=== PATIENT | female | born 1950 | race Caucasian/White ===

== ENCOUNTER 2017-02-14 11:03 | Emergency (ER) | payer MEDICARE, MEDICAID ==
[~2017-02-14] VITALS: Wt 55.0 kg
[~2017-02-14 11:03] MED LIST: ALEN70TA30 PO; BENA20TA48 PO; CIPR500T4 PO; DICL100G37 TOP; LORA0.5T PO; NORT25CA PO; ONDA-43 PO; RANI150T5 PO; SUMA50TA3 PO; TRAM-40 PO; TRAZ150T65 PO
[2017-02-14] MEDS ORDERED: HYDROCODONE/APAP (5/325) TAB PO ONE (12:00)
--- NOTE | 2017-02-14 12:54 | RADRPT ---
PROCEDURE: Thoracic spine series CLINICAL INDICATION: Trauma TECHNIQUE: AP and lateral views of the thoracic spine were obtained COMPARISON: MR thoracic spine 04/05/2013 FINDINGS: The bones are diffusely demineralized consistent with osteoporosis. There is a moderate dextrorotos coliosis of the mid to lower thoracic and upper lumbar spine. There are multiple mild mid and lower thoracic vertebral body fractures that appear chronic . There is no definite acute fractures. The re is no retropulsion. It is difficult to optimally evaluate the posterior elements and there is no gross abnormality. There are no definite paraspinous masses. There is atherosclerotic vascular dis ease present. IMPRESSION: 1. Osteoporosis. 2. Multiple mid and lower thoracic vertebral compression fractures appear chronic. No definite acu te fractures or retropulsion. 3. 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 RPTAT:AAJJ Physician Shelby Date Time Electronically viewed and signed by Casandra Del Castillo Physician on 02/14/2017 12:54 BM/
--- NOTE | 2017-02-14 12:56 | RADRPT ---
PROCEDURE: Pelvis x-ray CLINICAL INDICATION: Trauma TECHNIQUE: Single AP view of the pelvis performed. COMPARISON: None FINDINGS: There is incomplete demonstration of fixation of the proximal left femur. There appears to be old s uperior and inferior pubic rami fractures. There are no acute fractures or dislocations. There is mild degenerate joint disease of both hips. There is vertebral plasties involving the lower lumbar spine. There is degenerative changes lower lumbar spine. The bones are osteoporotic without evidence of focal bony blastic or lytic lesions. IMPRESSION: 1. Old bilateral superior and inferior pubic rami fractures. 2. Fixation of the proximal left femur incompletely visualized. 3. No evidence of acute fractures or dislocation. 4. 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 5. Osteoporosis. RPTAT:AAJJ Physician Shelby Date Time Electronically viewed and signed by Casandra Del Castillo Physician on 02/14/2017 12:56 BM/
--- NOTE | 2017-02-14 12:57 | RADRPT ---
PROCEDURE: Right hip series CLINICAL INDICATION: Trauma TECHNIQUE: AP and frog lateral views of the right hip were performed. COMPARISON: None. FINDINGS: There is mild degenerate joint disease right hip. There is old superior and inferior right pubic ra mi fractures. No acute fractures or dislocations. The bones are osteoporotic. No focal bony blast ic or lytic lesions. The soft tissues are unremarkable. IMPRESSION: 1. Mild degenerate joint disease of the right hip without acute fracture or dislocation. 2. Old right superior and inferior pubic rami fractures. 3. Osteoporosis. RPTAT:AAJJ Physician Shelby Date Time Electronically viewed and signed by Casandra Del Castillo Physician on 02/14/2017 12:57 BM/
--- NOTE | 2017-02-14 14:43 | RADRPT ---
PROCEDURE: CT of the right hip CLINICAL INDICATION: Right hip pain, fall, concern for fracture TECHNIQUE: Axial images through the right hip without IV contrast. Coronal and sagittal reformat s. Images were interpreted at an independent PACS workstation. CTDI 4.25 mGy DLP 15 1.44 mGy-cm One or more of the following dose reduction techniques were used: Automated exposure control Adjustment of the mA and / or kV according to patient size Use of iterative reconstruction technique. COMPARISON: Radiographs of the right hip performed same day CT of the abdomen and pelvis dated Fe ruary 2015, FINDINGS: The bones are osteopenic. There is evidence of remote bilateral inferior and superior pubic ramus f ractures with callous formation and healing changes. There is also a cortical irregularity of the r ight iliac crest peripherally, not present in 2016, but more likely chronic than acute as there is n o adjacent soft tissue swelling. There are degenerative changes at the sacroiliac joints and pubic symphysis with chondrocalcinosis a t the pubic symphysis. There is a chronic compression fracture of the L5 vertebral body with some a ssociated vertebral body cement. Some of the cement extends into the neural foramen at L5-S1 on the left. There are vascular calcifications. There is stool throughout the colon. There is a 4x 3 cm left ad nexal cyst. The bladder is distended. There is no lymphadenopathy. IMPRESSION: 1. Chronic bilateral inferior and superior pubic rami fractures. Cortical irregularity of the calli phery of the right iliac wing also appears more likely chronic than acute, though was not present bruary 2015. If clinically warranted MRI may provide additional detail. 2. Chronic compression fracture of L5 with associated vertebral body cement as above. 3. Incompletely assessed 4 x 3 cm left adnexal cyst. Recommend correlation with pelvic ultrasound. RPTAT: UU .Shayan Duran MD, Date Time Electronically viewed and signed by .Shayan Duran MD, on 02/14/2017 14:42 .K/
[2017-02-14] MEDS ORDERED: HYDR-906 PO (15:17)
[2017-02-14] MEDS ORDERED: METH-70 PO (15:17)
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
[2017-02-14 16:18] VITALS: BP 136/60; PULSE 80; RESP 20; TEMP 98.1
== END 2017-02-14 16:20 | disposition home or self-care (01) ==
LOC: E/R 11:03
DX: S70.01XA Contusion of right hip, initial encounter (principal); S29.012A Strain of muscle and tendon of back wall of thorax, initial encounter; I10 Essential (primary) hypertension; W19.XXXA Unspecified fall, initial encounter; Y92.9 Unspecified place or not applicable; Z87.891 Personal history of nicotine dependence
CPT/HCPCS: 72072; 72170; 73510; 73700